=== PATIENT | female | born 1945 | race Two or more races ===

== ENCOUNTER 2020-04-18 06:06 | Inpatient (IN) ==
--- NOTE | 2020-04-01 21:05 | PAT Medication Instructions ---
Medication Instructions Date of Service April 01, 2020 Home Medications atorvastatin 20 mg PO QAM calcium carbonate-vitamin D3 [Caltrate 600 + D] 1 tab PO QAM alendronate 70 mg PO WK linagliptin [Tradjenta] 5 mg PO QAM metformin 1,000 mg PO BID polyethylene glycol 3350 17 g PO DAILY PRN psyllium husk [Daily Fiber] 0.52 g PO DAILY Continue as directed alendronate 70 mg PO WK DO NOT take the morning of surgery calcium carbonate-vitamin D3 [Caltrate 600 + D] 1 tab PO QAM linagliptin [Tradjenta] 5 mg PO QAM metformin 1,000 mg PO BID polyethylene glycol 3350 17 g PO DAILY PRN psyllium husk [Daily Fiber] 0.52 g PO DAILY Take morning of surgery With a small sip of water, OTHERWISE NOTHING TO EAT OR DRINK AFTER MIDNIGHT: atorvastatin 20 mg PO QAM Take evening before surgery metformin 1,000 mg PO BID polyethylene glycol 3350 17 g PO DAILY PRN (if needed) Other Notes If you have any questions please call us at [phone] or [phone] or [phone] or [phone]
--- NOTE | 2020-04-04 09:08 | Anesthesiology Consultation ---
Date of Service April 04, 2020 Assessment & Plan (1) Encounter for pre-operative examination: Per PAT assessment on 04/04: Travel screen negative. No known COVID-19 positive contacts. No current COVID-19 related symptoms. No hx of COVID-19 testing. - Assistant Associate Full Professor needed: primary language [facility]. Patient declined research associate policy at PAT visit/requested son aid in obtaining PMHX. OR made aware of need for research associate policy DOS. - Anemia: HGB 7.4% on preop labs 04/04/20. Most recent comparison labs from oncology 03/10/20 with hgb at 7.6. HGB stable in the 7 range. Also noted at visit, + thrombocytosis. Case reviewed by Dr. Mckenzie: Recommendation for stat CBC and 2U PRBC's for AM DOS. Order written. Blood bank/OR/surgeon's office made aware. OR ([facility]) made aware to have patient come in early DOS to have blood transfusion. - Check BSG AM DOS Chart Review Chart Review: Acceptable Risk for Surgery and Patient seen in Pre Admission Testing Teaching & Discussion Pre-Anesthesia Teaching/Discussion Notes: Instructed NPO after midnight before surgery,except medications with 15 cc of water. Medication instructions provided according to the PAT guidelines. History Surgery Operation Date: 04/18/20 07:30 Proposed Procedures p Right Hand Assisted Laparoscopic Nephrectomy - Mike Cross MD Height/Weight Height: 5 ft 1 in Weight: 48.4 kg Allergies Allergy/AdvReac Type Severity Reaction Status Date / Time No Known Allergies Allergy Unverified 03/28/20 12:10 Medications Home Medications Medication Instructions Recorded Confirmed Last Taken atorvastatin 20 mg PO QAM 04/10/19 03/28/20 04/10/19 09:00 calcium carbonate-vitamin D3 1 tab PO QAM 04/10/19 03/28/20 04/10/19 09:00 [Caltrate 600 + D] alendronate 70 mg PO WK 03/28/20 03/28/20 Unknown linagliptin [Tradjenta] 5 mg PO QAM 03/28/20 03/28/20 Unknown metformin 1,000 mg PO BID 03/28/20 03/28/20 Unknown polyethylene glycol 3350 17 g PO DAILY PRN 03/28/20 03/28/20 Unknown psyllium husk [Daily Fiber] 0.52 g PO DAILY 03/28/20 03/28/20 Unknown Past Medical History Medical History (Updated 04/04/20 @ 15:11 by Ashli Mckeon) Age related osteoporosis Anemia chronic, stable hgb in the 7's Constipation Diabetes (Chronic) NIDDM Emphysema lung mild emphysematous change on preop CXR Kidney mass Exercise / Class Metabolic Activity III < 4 Walking/Shop/Light housework Past Family History Family History Brother Diabetes Mother Diabetes Past Surgical History Surgical History History of left cataract surgery Past Anesthesia History No Hx of Anesthesia Complications and No Family Hx of Anesthesia Complications History of PONV No Hx of PONV Social History Smoking Status: Never smoker Do You Dip or Chew Tobacco: No Hx Alcohol Use: No Hx Substance Use: No substance use type: does not use Review of Systems Patient denies chest pain, shortness of breath, cough, wheezing, palpitations. Physical Exam Vital Signs VITALS BP 113/62 P 91 TEMP 98.1 SP02 97%RA RESP 16 PHYSICAL Full neck and c-spine range of motion. Full TMJ range of motion. TMD 3.5 finger breaths Mallampati Score 2 Dentition: edentulous, + dentures upper/lower Lungs: clear throughout to auscultation Cardiac: regular rate and rhythm, no murmurs noted Spine: normal Carotid arteries: negative bruit Extremities: no edema Testing Laboratory Results 04/04/20 09:31 04/04/20 09:31 Hemoglobin A1c 6.6 % (4.5-5.6) H 04/04/20 09:31 Urine Color Yellow 04/04/20 09:31 Urine Appearance Clear (Clear) 04/04/20 09:31 Urine pH 6.0 (4.5-7.5) 04/04/20 09:31 Ur Specific [place] 1.012 (1.000-1.030) 04/04/20 09:31 Urine Protein Negative (Negative) 04/04/20 09:31 Urine Glucose (UA) Negative (Negative) 04/04/20 09:31 Urine Ketones Negative (Negative) 04/04/20 09:31 Urine Nitrite Negative (Negative) 04/04/20 09:31 Ur Leukocyte Esterase Negative (Negative) 04/04/20 09:31 Blood Type AB Positive 04/04/20 09:31 Antibody Screen NEGATIVE 04/04/20 09:31 Electrocardiogram Date: 04/04/20 Findings: + NSR @ (95) Chest X-Ray Date: 04/04/20 Lungs are clear. There is a component of mild emphysematous change. No significant cardiac enlargement. Diaphragms are smooth. IMPRESSION: Chronic and mild emphysematous change. No acute process.
[2020-04-04 10:12] LABS: Appearance Urine Clear (Clear); Bilirubin Urine Negative (Negative); Blood Urine Negative (Negative); Color Urine Yellow; Glucose Urine UA Negative (Negative); Ketones Urine Negative (Negative); Leukocyte Esterase Urine Negative (Negative); Nitrite Urine Negative (Negative); Protein Urine Negative (Negative); Specific Gravity Urine 1.012 (1.000-1.030); Urobilinogen Urine Negative (Negative)
--- NOTE | 2020-04-04 10:12 | XRay Report ---
XR chest Pre-admission PA/Lat CLINICAL HISTORY: PAT preoperative evaluation COMPARISON STUDY: 04/10/2018 FINDINGS: Lungs are clear. There is a component of mild emphysematous change. No significant cardiac enlargement. Diaphragms are smooth. IMPRESSION: Chronic and mild emphysematous change. No acute process. ACT 112: Negative or not required by law. The above report was generated using voice recognition software. It may contain grammatical, syntax or spelling errors. Electronically signed by: Lex Moody M.D. 04/04/2020 10:11 AM
[2020-04-04 10:24] LABS: BUN Creatinine Ratio 27.8 (10-20); Calcium 9.9 mg/dl (8.5-10.1); Creatinine Clr Calc Pharmacy 85.9 ml/min; Est GFR (African American) 116.1; Est GFR (Non-African American) 100.1; Potassium 4.3 mmol/L (3.5-5.1)
[2020-04-04 10:35] LABS: Estimated Average Glucose 143 mg/dl; Hemoglobin A1C 6.6 % (4.5-5.6)
[2020-04-04 11:23] LABS: Basophils # (auto) 0.03 K/uL (0-0.2); Basophils % (auto) 0.3 %; Eosinophils # (auto) 0.08 K/uL (0-0.5); Eosinophils % (auto) 0.9 %; Hematocrit (blood only) 25.5 % (37-47); Hemoglobin 7.4 g/dL (12.0-16.0); Hypochromasia Present; Immature Granulocytes # (auto) 0.02 K/uL (0.00-0.02); Immature Granulocytes % (auto) 0.2 %; Lymphocytes # (auto) 1.31 K/uL (1.2-3.4); Mean Corpuscular Hemoglobin 20.8 pg (25-34); Mean Corpuscular Volume 71.8 fL (80-100); Microcytosis Present; Monocytes # (auto) 1.13 K/uL (0.11-0.59); Monocytes % (auto) 12.9 %; Neutrophils # (auto) 6.16 K/uL (1.4-6.5); Neutrophils % (auto) 70.7 %; Platelet Count 686 K/uL (130-400); Red Blood Count 3.55 M/uL (4.2-5.4); White Blood Count 8.73 K/uL (4.8-10.8)
--- NOTE | 2020-04-04 12:20 | Electrocardiogram Report ---
Test Reason : Blood Pressure : / mmHG Vent. Rate : 095 BPM Atrial Rate : 095 BPM P-R Int : 150 ms QRS Dur : 086 ms QT Int : 356 ms P-R-T Axes : 064 040 060 degrees QTc Int : 447 ms Normal sinus rhythm Normal ECG When compared with ECG of 10-APR-2019 14:39, No significant change was found Confirmed by Dillon Maharaj ([id number]) on 04/04/2020 12:20:07 PM Referred By: Mike Cross Confirmed By:Lester Maharaj
[~2020-04-18 06:06] MED LIST: CEFAZOLIN 2000MG 2,000 MG/15 ML SYR IV SCH; LACTATED RINGER'S 1,000 ML IV SCH; SODIUM CHLORIDE 0.9% 250 ML IV PRN
[2020-04-18] MEDS ORDERED: ATROPINE SULFATE 0.1 MG/ML 10ML SYR IV PRN (07:14)
[2020-04-18] MEDS ORDERED: ePHEDrine sulfate 50 MG/ML AMP IV PRN (07:14)
[2020-04-18] MEDS ORDERED: HYDROmorphone INJ 1 MG/ML SYRINGE IV PRN (07:14)
[2020-04-18] MEDS ORDERED: ONDANSETRON INJ 2 MG/ML 2 ML VIAL IV PRN ×2 (07:14→13:50)
[2020-04-18 07:26] LABS: Basophils # (auto) 0.04 K/uL (0-0.2); Basophils % (auto) 0.6 %; Eosinophils # (auto) 0.08 K/uL (0-0.5); Eosinophils % (auto) 1.1 %; Hematocrit (blood only) 26.2 % (37-47); Hemoglobin 7.6 g/dL (12.0-16.0); Immature Granulocytes # (auto) 0.03 K/uL (0.00-0.02); Immature Granulocytes % (auto) 0.4 %; Lymphocytes # (auto) 1.18 K/uL (1.2-3.4); Lymphocytes % (auto) 16.5 %; Mean Corpuscular Hemoglobin 20.9 pg (25-34); Mean Platelet Volume 8.2 fL (7.4-10.4); Monocytes # (auto) 1.02 K/uL (0.11-0.59); Monocytes % (auto) 14.2 %; Neutrophils # (auto) 4.81 K/uL (1.4-6.5); Neutrophils % (auto) 67.2 %; Platelet Count 678 K/uL (130-400); RDW Coefficient of Variation 18.3 % (11.5-14.5); RDW Standard Deviation 48.7 fL (36.4-46.3); Red Blood Count 3.64 M/uL (4.2-5.4); White Blood Count 7.16 K/uL (4.8-10.8)
[2020-04-18 07:49] LABS: Hypochromasia Present; Microcytosis Present
[2020-04-18] MEDS ORDERED: ALBUMIN HUMAN 5% 12.5 GM/250 ML VIAL IV ONE (07:50)
[2020-04-18] MEDS ORDERED: fentaNYL citrate 100 MCG/2 ML VIAL ONE ×2 (08:06→10:20)
[2020-04-18] MEDS ORDERED: LIDOCAINE HCL 2% 2 ML VIAL/AMP(20MG/ML) INFIL ONE (08:06)
[2020-04-18] MEDS ORDERED: MIDAZOLAM HCL 1 MG/ML 2ML VIAL ONE (08:06)
[2020-04-18] MEDS ORDERED: ROCURONIUM BROMIDE 10 MG/ML 5 ML VIAL IV ONE (08:06)
[2020-04-18] MEDS ORDERED: ONDANSETRON INJ 2 MG/ML 2 ML VIAL ONE (08:06)
[2020-04-18] MEDS ORDERED: PROPOFOL IV EMULSION 10 MG/ML 20 ML VIAL IV ONE (08:06)
--- NOTE | 2020-04-18 08:48 | History & Physical Bridge Note ---
Date of Service April 18, 2020 History & Physical Bridge Note I have examined the patient, reviewed the History & Physical and in the interval since the performance of the History & Physical I have noted the following changes of clinical significance: no changes noted
[2020-04-18] MEDS ORDERED: BUPIVACAINE 0.5 % 5 MG/1 ML MPF 30ML VIAL ONE (09:29)
[2020-04-18] MEDS ORDERED: FLOSEAL HEMOSTATIC MATRIX 10ML TOP ONE (11:15)
[2020-04-18] MEDS ORDERED: SURGICEL ABSORB HEMOSTAT 2IN X 14IN TOP ONE (11:42)
[2020-04-18] MEDS ORDERED: SUGAMMADEX SODIUM 200 MG/2 ML VIAL IV ONE (11:51)
--- NOTE | 2020-04-18 12:39 | Operative Report ---
PG Post Operative Report Pre & Post Diagnosis Operation Date: 04/18/20 08:50 Pre-Op Diagnosis: Renal Mass Post-Op Diagnosis: Renal Mass I identified the patient and participated in the time-out.: Yes Procedure Operation Date: 04/18/20 08:50 Actual Procedures p Right Hand Assisted Laparoscopic Nephrectomy(Right); retroperitoneal lymph node resection- Mike Cross MD Surgeon Dillon Cross MD Hosted Services Analyst Jhoana Patel; Krissy Turner Estimated Blood Loss 100 Findings Consistent with Post-Op Diagnosis Specimens 1. Kidney 2. Interaortocaval node Description of Procedure The patient was identified in the preoperative holding area, appropriate informed consents were reviewed and completed and the patient was transferred to the operative suite. Upon arrival, appropriate antibiotics and anesthesia were administered and the patient was placed in left side down right side up lateral decubitus position with the bed flexed. Of note, she received 2 units of blood prior to surgery per anesthesia recommendations. To begin the case I made a Horton style incision on the right lower quadrant beginning at the lateral border of the rectus muscle and angling towards the anterior superior iliac spine. I carried this dissection through the superficial tissues until I identified the external oblique fascia. This was incised sharply and opened longitudinally. I then carried this to the internal oblique and transversalis before piercing the peritoneum sharply and performing a finger sweep. This revealed no evidence of adhesions in the area. I expanded the peritoneal incision to match the external incision and inspected internally. Utilizing this incision I was able to start mobilizing the colon medially by incising the lateral white line of Toldt. This dissection was carried towards the kidney. I then placed a GelPort in the hand adapter. I insufflated the abdomen by placing a 12 mm port through the GelPort. I then passed a hand and placed to election assistant ports along with a lateral border of the rectus musclethe first was approximately 4 cm below the costal margin, the second was ap proximately 8 cm below thatboth were 12 mm ports. To begin the laparoscopic portion of the case I continued my mobilization of the colon medially. I then continued my peritoneal dissection from the superior medial pole of the kidney to the lateral corner of the diaphragm and liver. I did not incise laterally to the kidney initially. I then returned to the lower pole of the kidney and I began to dissect and identify the duodenum. I kocherized the duodenum and moved it off the medial aspect of the kidney and IVC. I was able to dissect this nearly across the midline in anticipation of a later dissection of an interaortocaval node. Identify the gonadal vein inferior to the kidney and traced it back to the IVC. I then follow the lateral border of the IVC until we encountered the lower aspect of the renal vein. There was a thin layer of fat still over the renal vein but I could easily palpate both the vein and artery. I passed a solitary staple load across the hilum and stapled this. There was excellent hemostasis. I fired an additional staple load between the adrenal gland and the superior pole of the kidney. I then turned my attention back to the lower pole of the kidney. Identified the ureter neck control the ureter and a portion of introitus fascia utilizing a staple load. I used harmonic scalpel to incise the lateral aspect of the peritoneum and dissect further around the lateral portion of the kidney. Ultimately there was still some adherent tissue in the superior aspect of the kidney and I fired an additional staple load in that area before completing the dissection with harmonic scalpel. Hemostasis was excellent in the renal fossa. Hilar structures were dry. The kidney was extracted and passed off the table. I then turned my attention to a suspected metastatic interaortocaval node. I was able to follow the IVC and palpated node in the interaortocaval space just inferior to the renal vessels. I dissected this circumferentially and resected the node. Of note, the node was relatively mobile and not adherent to either the IVC or aorta. There was a solitary vessel feeding the note from the inferior aspect which proved somewhat challenging to control. I placed a number of clips around other small vessels medial and lateral and ultimately was able to control the small vessel feeding the node with a clip from the inferior aspect. After confirming good hemostasis, I placed FloSeal against the hilar structures and under the lateral border of the adrenal gland. I also placed a small amount of FloSeal in the interaortocaval space where the noted been dissected. I draped the omentum back over the right hemiabdomen and guided the colon back into the right hemiabdomen as well. I close the 2 - 12 mm election assistant ports with a solitary 0 Vicryl through the fascia. The hand port was closed in 3 layers utilizing 0 Vicryl. Skin was closed with 4-0 Monocryl after being infiltrated with half percent Marcaine. Dermabond was placed over all the incisions. She was subsequently extubated and taken to the PACU in stable condition. There were no complications. Jhoana Turner assisted from incision to closure. I attest to the content of the Intraoperative Record and any orders documented therein. Any exceptions are noted below.
[2020-04-18] MEDS: fentaNYL citrate 100 MCG/2 ML VIAL IV PRN ×2 (12:43→13:15)
[2020-04-18 12:50] LABS: iSTAT Creatinine 0.3 mg/dl (0.6-1.3); iSTAT Hemoglobin 10.2 g/dl (12.0-16.0); iSTAT Ionized Calcium 1.25 mmol/l (1.12-1.32); iSTAT Potassium 3.8 mmol/L (3.3-5.0)
[2020-04-18 12:53] LABS: Hematocrit (blood only) 30.2 % (37-47); Hemoglobin 9.3 g/dL (12.0-16.0); Mean Corpuscular Hemoglobin 23.1 pg (25-34); Mean Corpuscular Volume 75.1 fL (80-100); Mean Platelet Volume 8.1 fL (7.4-10.4); Platelet Count 531 K/uL (130-400); RDW Coefficient of Variation 18.9 % (11.5-14.5); Red Blood Count 4.02 M/uL (4.2-5.4); White Blood Count 12.45 K/uL (4.8-10.8)
[2020-04-18 13:01] LABS: Mean Corpuscular Hgb Conc 30.8 g/dL (32-36)
[2020-04-18 13:09] LABS: BUN Creatinine Ratio 23.7 (10-20); Calcium 9.2 mg/dl (8.5-10.1); Creatinine Clr Calc Pharmacy 82.2 ml/min; Est GFR (African American) 114.4; Est GFR (Non-African American) 98.7; Potassium 3.9 mmol/L (3.5-5.1)
[2020-04-18 13:19] LABS: Basophils # (auto) 0.03 K/uL (0-0.2); Basophils % (auto) 0.2 %; Eosinophils # (auto) 0.02 K/uL (0-0.5); Eosinophils % (auto) 0.2 %; Immature Granulocytes # (auto) 0.03 K/uL (0.00-0.02); Immature Granulocytes % (auto) 0.2 %; Lymphocytes # (auto) 1.38 K/uL (1.2-3.4); Lymphocytes % (auto) 11.1 %; Monocytes # (auto) 1.26 K/uL (0.11-0.59); Monocytes % (auto) 10.1 %; Neutrophils # (auto) 9.73 K/uL (1.4-6.5); Neutrophils % (auto) 78.2 %
[2020-04-18] MEDS ORDERED: POLYETHYLENE (MIRALAX) 17 GM PACK PO PRN (13:50)
[2020-04-18] MEDS ORDERED: OXYCODONE HCL IR 5 MG TAB (IMMEDIATE RELEASE) PO PRN (13:50)
[2020-04-18] MEDS ORDERED: PHARMACY GLYCEMIC MGMT CONSULT PRN (13:56)
[2020-04-18] MEDS ORDERED: DEXTROSE 50% 50 ML SYRINGE IV PRN (14:30)
[2020-04-18] MEDS ORDERED: CARBOHYDRATES FOR HYPOGLYCEMIA PO PRN (14:30)
[2020-04-18] MEDS ORDERED: GLUCAGON FOR INJ 1 MG VIAL IM PRN (14:30)
[2020-04-18] MEDS ORDERED: GLUCOSE 40% GEL 15 GM TUBE PO PRN (14:30)
[2020-04-18] MEDS ORDERED: GLUCOSE 10 TABS/TUBE PO PRN (14:30)
--- NOTE | 2020-04-18 14:32 | Pharmacy Report ---
Glycemic Control Consultation - Date of Service April 18, 2020 - Scope Scope: Glycemic Pharmacist consulted for glycemic control and to write orders per [facility] inpatient glycemic control protocol. - Objective Weight: 48.4 kg Accuchecks BSG (last 24hrs): 04/18/20 04/18/20 04/18/20 06:26 10:48 12:33 Glucose POC Glucose 80 146 H POC Glucose (other) 123 H 04/18/20 12:45 Glucose 147 H POC Glucose POC Glucose (other) Laboratory Data (last 24hrs): 04/18/20 12:45 Potassium 3.9 Carbon Dioxide 21 Anion Gap 12.0 H Creatinine 0.46 L Est Cr Clr Drug Dosing 82.2 HbA1c: Hemoglobin A1c 6.6 % (4.5-5.6) H 04/04/20 09:31 - Recent Pertinent Medications Outpatient Anti-diabetic Regimen: * tradjenta, metformin * A1c = 6.6 % 04/04/20 Risk Factors for Insulin Resistance: * Recent Surgery: POD 0 * Diet: clears * - Assessment & Plan Assessment & Plan: ASSESSMENT: * Patient s/p nephrectomy. Type 2 diabetic managed on oral agents at home. Pharmacy consulted for glycemic management PLAN FOR INPATIENT GLYCEMIC CONTROL: * Basal insulin * hold / not indicated * Bolus insulin * NovoLog per scale ACHS or Q6hrs while NPO * Goal Range: Low 110 mg/dL - High 140 mg/dL * Correction Factor: 40 mg/dL/unit * Nutritional / Prandial insulin per carb ratio of 1 unit per 15 grams CHO consumed * Please note that the plan above was derived based on current level of insulin resistance and hospital stress. These recommendations are appropriate for inpatient admission only. Plan of care upon discharge will need to be reassessed to avoid potential outpatient hypo/hyperglycemia. Thank you.
[2020-04-18] MEDS ORDERED: MoRPHine SULFATE 2 MG/ML CARP IV PRN ×2 (15:15→15:16)
[2020-04-18] MEDS: ACETAMINOPHEN 325 MG TAB PO PRN (15:29)
[2020-04-18] MEDS: LACTATED RINGER'S 1,000 ML IV SCH ×2 (15:30→23:37)
--- NOTE | 2020-04-18 16:11 | Anesthesiology Progress Note ---
Date of Service April 18, 2020 Anesthesia Post Procedure Vital Signs Vital Signs: Temp Pulse Pulse Pulse Resp BP BP 04/18/20 15:38 36.5 C 68 16 167/75 H 04/18/20 13:45 36.6 C 64 11 L 144/71 H 04/18/20 13:30 62 18 130/65 04/18/20 13:20 62 17 138/66 04/18/20 13:10 64 18 141/73 H 04/18/20 13:00 62 17 140/66 04/18/20 12:50 62 11 L 127/64 04/18/20 12:40 64 17 128/64 04/18/20 12:30 65 21 124/64 04/18/20 12:24 36.1 C L 71 20 110/65 04/18/20 09:18 37.3 C 93 H 18 142/77 H 04/18/20 08:53 37.3 C 97 H 18 129/68 04/18/20 08:25 36.9 C 100 H 18 118/62 04/18/20 07:55 37.7 C H 95 H 18 123/65 04/18/20 07:35 37.1 C 100 H 18 128/68 04/18/20 07:23 36.6 C 99 H 18 153/81 H 04/18/20 06:44 36.6 C 99 H 18 155/81 H 04/18/20 06:30 36.6 C 99 H 18 153/81 H Pulse Ox 04/18/20 15:38 98 04/18/20 13:45 100 04/18/20 13:30 100 04/18/20 13:20 100 04/18/20 13:10 100 04/18/20 13:00 100 04/18/20 12:50 100 04/18/20 12:40 100 04/18/20 12:30 100 04/18/20 12:24 100 04/18/20 09:18 97 04/18/20 08:53 95 04/18/20 08:25 95 04/18/20 07:55 94 04/18/20 07:35 96 04/18/20 07:23 99 04/18/20 06:44 99 04/18/20 06:30 99 Transfer of Care Handoff Completed per policy Notes Mental Status: alert / awake / arousable and participated in evaluation Patient Amnestic to Procedure: Yes Nausea / Vomiting: adequately controlled Pain: adequately controlled Airway Patency, RR, SpO2: stable & adequate BP & HR: stable & adequate Hydration State: stable & adequate Anesthetic Complications: no major complications apparent and Pt Satisfied with anesthetic care
[2020-04-18] MEDS: INSULIN ASPART 100 UNITS/ML 3 ML PEN SC SCH ×2 (18:34→21:20)
[2020-04-18] MEDS: CEFAZOLIN 2000MG 2,000 MG/15 ML SYR IV SCH (18:41)
[2020-04-18] MEDS: OXYCODONE HCL IR 5 MG TAB (IMMEDIATE RELEASE) PO PRN (20:54)
[2020-04-19] MEDS: CEFAZOLIN 2000MG 2,000 MG/15 ML SYR IV SCH (00:50)
[2020-04-19 07:31] LABS: Basophils # (auto) 0.03 K/uL (0-0.2); Basophils % (auto) 0.4 %; Eosinophils # (auto) 0.11 K/uL (0-0.5); Eosinophils % (auto) 1.5 %; Hematocrit (blood only) 27.9 % (37-47); Hemoglobin 8.5 g/dL (12.0-16.0); Immature Granulocytes # (auto) 0.01 K/uL (0.00-0.02); Immature Granulocytes % (auto) 0.1 %; Lymphocytes # (auto) 1.39 K/uL (1.2-3.4); Lymphocytes % (auto) 18.5 %; Mean Corpuscular Hemoglobin 22.9 pg (25-34); Mean Corpuscular Hgb Conc 30.5 g/dL (32-36); Mean Corpuscular Volume 75.2 fL (80-100); Monocytes # (auto) 0.95 K/uL (0.11-0.59); Monocytes % (auto) 12.6 %; Neutrophils # (auto) 5.04 K/uL (1.4-6.5); Neutrophils % (auto) 66.9 %; Platelet Count 534 K/uL (130-400); RDW Coefficient of Variation 18.7 % (11.5-14.5); RDW Standard Deviation 51.9 fL (36.4-46.3); Red Blood Count 3.71 M/uL (4.2-5.4); White Blood Count 7.53 K/uL (4.8-10.8)
[2020-04-19 07:55] LABS: BUN Creatinine Ratio 16.3 (10-20); Calcium 8.7 mg/dl (8.5-10.1); Est GFR (African American) 104.8; Est GFR (Non-African American) 90.4; Potassium 4.1 mmol/L (3.5-5.1)
--- NOTE | 2020-04-19 08:09 | Urology Progress Note ---
Date of Service April 19, 2020 Assessment & Plan (1) Renal mass: Renal masspresumed renal cell carcinoma with suspected metastatic disease involving a retroperitoneal lymph node and possible spine locations Status post nephrectomy and metastatic ectomy of the retroperitoneal lymph node Progressing appropriately Continue ambulation Gooden out today Clear liquid diet Subjective Progressing appropriately overnight Still with significant pain, some gas pain Was out of bed briefly last night No nausea Pain has improved from yesterday until today Physical Exam Physical Exam: Incisions appropriate Abdomen soft Urine clear Results & Data Vital Signs (Past 12 Hours) Vital Signs Temp Pulse Resp BP BP Pulse Ox 04/19/20 07:58 36.6 C 62 18 164/72 H 95 04/19/20 04:00 37.1 C 62 18 132/72 95 04/18/20 23:35 36.4 C L 59 L 16 136/69 95 04/18/20 20:43 36.6 C 63 20 164/73 H 99 PG Care Time/CCT Total # of Minutes Spent Total Time Spent with Patient: Total time spent is greater than 50% in coordination of care (as documented) at patient's floor/unit and/or counseling patient: Coding Level of Care Code None Diagnoses Renal mass N28.89
--- NOTE | 2020-04-19 08:53 | Anesthesiology Progress Note ---
Date of Service April 19, 2020 Anesthesia Post Procedure Vital Signs Vital Signs: Temp Pulse Pulse Pulse Resp BP BP 04/19/20 07:58 36.6 C 62 18 04/19/20 04:00 37.1 C 62 18 132/72 04/18/20 23:35 36.4 C L 59 L 16 04/18/20 20:43 36.6 C 63 20 164/73 H 04/18/20 19:53 36.6 C 61 16 04/18/20 17:09 36.5 C 64 16 158/75 H 04/18/20 15:38 36.5 C 68 16 167/75 H 04/18/20 13:45 36.6 C 64 11 L 144/71 H 04/18/20 13:30 62 18 130/65 04/18/20 13:20 62 17 138/66 04/18/20 13:10 64 18 141/73 H 04/18/20 13:00 62 17 140/66 04/18/20 12:50 62 11 L 127/64 04/18/20 12:40 64 17 128/64 04/18/20 12:30 65 21 124/64 04/18/20 12:24 36.1 C L 71 20 110/65 04/18/20 09:18 37.3 C 93 H 18 142/77 H BP Pulse Ox 04/19/20 07:58 164/72 H 95 04/19/20 04:00 95 04/18/20 23:35 136/69 95 04/18/20 20:43 99 04/18/20 19:53 163/75 H 97 04/18/20 17:09 97 04/18/20 15:38 98 04/18/20 13:45 100 04/18/20 13:30 100 04/18/20 13:20 100 04/18/20 13:10 100 04/18/20 13:00 100 04/18/20 12:50 100 04/18/20 12:40 100 04/18/20 12:30 100 04/18/20 12:24 100 04/18/20 09:18 97 Pain Intensity Abdomen: Pain Intensity: 7 Notes Mental Status: alert / awake / arousable and participated in evaluation Patient Amnestic to Procedure: Yes Nausea / Vomiting: adequately controlled Pain: adequately controlled Airway Patency, RR, SpO2: stable & adequate BP & HR: stable & adequate Hydration State: stable & adequate Anesthetic Complications: no major complications apparent and Pt Satisfied with anesthetic care
[2020-04-19] MEDS: CALCIUM 600MG + VIT D 400 IU TAB PO SCH (09:10)
[2020-04-19] MEDS: ATORVASTATIN 20 MG TAB PO SCH (09:11)
[2020-04-19] MEDS: INSULIN ASPART 100 UNITS/ML 3 ML PEN SC SCH ×4 (09:11→21:15)
[2020-04-19] MEDS: LACTATED RINGER'S 1,000 ML IV SCH ×2 (09:16→18:21)
[2020-04-19] MEDS: ACETAMINOPHEN 325 MG TAB PO PRN ×2 (10:50→20:59)
[2020-04-20] MEDS: LACTATED RINGER'S 1,000 ML IV SCH (03:03)
[2020-04-20 06:49] LABS: Basophils # (auto) 0.02 K/uL (0-0.2); Basophils % (auto) 0.3 %; Eosinophils # (auto) 0.13 K/uL (0-0.5); Eosinophils % (auto) 1.8 %; Hematocrit (blood only) 29.9 % (37-47); Hemoglobin 9.1 g/dL (12.0-16.0); Immature Granulocytes # (auto) 0.01 K/uL (0.00-0.02); Immature Granulocytes % (auto) 0.1 %; Lymphocytes # (auto) 1.19 K/uL (1.2-3.4); Lymphocytes % (auto) 16.9 %; Mean Corpuscular Hemoglobin 23.2 pg (25-34); Mean Corpuscular Hgb Conc 30.4 g/dL (32-36); Mean Corpuscular Volume 76.1 fL (80-100); Monocytes # (auto) 0.78 K/uL (0.11-0.59); Neutrophils # (auto) 4.93 K/uL (1.4-6.5); Neutrophils % (auto) 69.9 %; Platelet Count 532 K/uL (130-400); Red Blood Count 3.93 M/uL (4.2-5.4); White Blood Count 7.06 K/uL (4.8-10.8)
[2020-04-20 07:30] LABS: Est GFR (African American) 108.5; Est GFR (Non-African American) 93.6; Potassium 3.8 mmol/L (3.5-5.1)
[2020-04-20] MEDS: ATORVASTATIN 20 MG TAB PO SCH (08:31)
[2020-04-20] MEDS: CALCIUM 600MG + VIT D 400 IU TAB PO SCH (08:31)
[2020-04-20] MEDS: INSULIN ASPART 100 UNITS/ML 3 ML PEN SC SCH ×4 (09:51→21:17)
--- NOTE | 2020-04-20 10:27 | Urology Progress Note ---
Date of Service April 20, 2020 Assessment & Plan (1) Renal mass: Postop day 2 status post right nephrectomy and retroperitoneal lymph node dissection Recovering appropriately Continue ambulation Gooden out yesterday Slow diet advance Likely discharge home tomorrow if she continues to progress Subjective Making progress Ambulatory throughout the day yesterday Still no flatus No nausea Tolerating clear liquids Pain is still present but tolerable Review of Systems Review of Systems: All systems reviewed & are unremarkable except as noted in HPI & below Physical Exam Physical Exam: Incisions healing nicely, minimal abdominal distention Abdomen is soft Results & Data Vital Signs (Past 12 Hours) Vital Signs Temp Pulse Resp BP BP Pulse Ox 04/20/20 07:15 36.6 C 76 16 157/76 H 93 04/19/20 23:38 36.6 C 71 18 143/71 H 95 PG Care Time/CCT Total # of Minutes Spent Total Time Spent with Patient: Total time spent is greater than 50% in coordination of care (as documented) at patient's floor/unit and/or counseling patient: Coding Level of Care Code None Diagnoses Renal mass N28.89
[2020-04-20] MEDS ORDERED: KETOROLAC TROMETHAMINE 15 MG/ML VIAL IV ONE (11:35)
--- NOTE | 2020-04-20 14:45 | Pharmacy Report ---
Pharmacy Glycemic Short Note 2 - Date of Service April 20, 2020 - Glycemic Short BSG Results (Last 24 hours): 04/19/20 04/19/20 04/20/20 17:19 20:54 06:12 Glucose 111 H POC Glucose 117 H 141 H 04/20/20 04/20/20 08:38 12:05 Glucose POC Glucose 121 H 125 H OUTPATIENT ANTIDIABETIC REGIMEN: * tradjenta, metformin * A1c = 6.6 % 04/04/20 ASSESSMENT: * Berna is POD #2 s/p nephrectomy * Excellent glycemic control with minimal insulin usage (6 units yesterday) * Will resume metformin per patient is tolerating an oral diet and CrCl appears to be stabled. Possible discharge tomorrow. * Remove Novolog carbohydrate coverage - continue with correction only PLAN FOR INPATIENT GLYCEMIC CONTROL: * Resume metformin 1000 mg PO BID * Bolus insulin * NovoLog per scale ACHS or Q6hrs while NPO * Goal Range: Low 110 mg/dL - High 140 mg/dL * Correction Factor: 40 mg/dL/unit thank you
[2020-04-20] MEDS: METFORMIN HCL 500 MG TAB PO SCH (18:20)
[2020-04-21] MEDS: OXYCODONE HCL IR 5 MG TAB (IMMEDIATE RELEASE) PO PRN (06:34)
[2020-04-21 07:59] LABS: Basophils # (auto) 0.03 K/uL (0-0.2); Basophils % (auto) 0.6 %; Eosinophils # (auto) 0.12 K/uL (0-0.5); Eosinophils % (auto) 2.5 %; Hematocrit (blood only) 32.7 % (37-47); Hemoglobin 9.5 g/dL (12.0-16.0); Lymphocytes # (auto) 1.46 K/uL (1.2-3.4); Lymphocytes % (auto) 30.4 %; Mean Corpuscular Hemoglobin 22.8 pg (25-34); Mean Corpuscular Hgb Conc 29.1 g/dL (32-36); Mean Corpuscular Volume 78.4 fL (80-100); Mean Platelet Volume 8.1 fL (7.4-10.4); Monocytes # (auto) 0.39 K/uL (0.11-0.59); Monocytes % (auto) 8.1 %; Neutrophils # (auto) 2.81 K/uL (1.4-6.5); Neutrophils % (auto) 58.4 %; Platelet Count 555 K/uL (130-400); RDW Coefficient of Variation 19.1 % (11.5-14.5); RDW Standard Deviation 55.2 fL (36.4-46.3); Red Blood Count 4.17 M/uL (4.2-5.4); White Blood Count 4.81 K/uL (4.8-10.8)
[2020-04-21] MEDS: METFORMIN HCL 500 MG TAB PO SCH ×2 (08:14→17:34)
[2020-04-21] MEDS: CALCIUM 600MG + VIT D 400 IU TAB PO SCH (08:14)
[2020-04-21] MEDS: ATORVASTATIN 20 MG TAB PO SCH (08:14)
[2020-04-21 08:27] LABS: BUN Creatinine Ratio 12.3 (10-20); Calcium 8.9 mg/dl (8.5-10.1); Creatinine Clr Calc Pharmacy 64.1 ml/min; Est GFR (African American) 105.4; Est GFR (Non-African American) 90.9; Potassium 3.8 mmol/L (3.5-5.1)
--- NOTE | 2020-04-21 09:23 | Urology Progress Note ---
Date of Service April 21, 2020 Assessment & Plan (1) Renal cell carcinoma: Continues to progress appropriately from her recent nephrectomy Likely discharge home tomorrow Awaiting final pathology Subjective Continues to progress after her recent right nephrectomy and retroperitoneal lymph node dissection Pain is decreased Ambulating more regularly and with less discomfort Tolerating a regular diet Passing flatus but no bowel movement yet Labs are stabilized/improved Review of Systems Review of Systems: All systems reviewed & are unremarkable except as noted in HPI & below Physical Exam Physical Exam: Incisions healing nicely Constitutional: well developed and well nourished Neck: neck nontender Respiratory: normal respiratory effort; no respiratory distress and does not use accessory muscles Cardiovascular: Rate/Rhythm: regular rate Vessels: radial pulses present Extremities: no edema Gastrointestinal (Abdomen): Inspection/Auscultation: abdomen normal to inspection Percussion/Palpation: abdomen soft; abdomen nontender and no guarding Musculoskeletal: Head/Neck/Chest: normocephalic and head atraumatic Extr emities: extremities normal to inspection Skin: no rashes and no lesions Trauma: no evidence of skin trauma Neurologic: awake; not obtunded Speech / Cognition: normal speech Motor/Sensory: no tremor Psychiatric: Orientation: alert and oriented x 3 Lymphatic: no lymphadenopathy Results & Data Vital Signs (Past 12 Hours) Vital Signs Temp Pulse Resp BP Pulse Ox 04/21/20 07:04 36.4 C L 68 16 158/80 H 96 04/21/20 00:07 36.5 C 66 16 135/73 94 PG Care Time/CCT Total # of Minutes Spent Total Time Spent with Patient: Total time spent is greater than 50% in coordination of care (as documented) at patient's floor/unit and/or counseling patient: Coding Level of Care Code 79682 Subseq Hosp Care Lvl 2 Diagnoses Renal cell carcinoma C64.9
[2020-04-21] MEDS: INSULIN ASPART 100 UNITS/ML 3 ML PEN SC SCH ×4 (09:37→21:01)
[2020-04-22 06:18] LABS: Basophils # (auto) 0.04 K/uL (0-0.2); Basophils % (auto) 0.7 %; Eosinophils # (auto) 0.17 K/uL (0-0.5); Eosinophils % (auto) 3.2 %; Hematocrit (blood only) 30.7 % (37-47); Immature Granulocytes # (auto) 0.02 K/uL (0.00-0.02); Immature Granulocytes % (auto) 0.4 %; Lymphocytes # (auto) 1.45 K/uL (1.2-3.4); Lymphocytes % (auto) 27.2 %; Mean Corpuscular Hemoglobin 22.7 pg (25-34); Mean Corpuscular Hgb Conc 29.3 g/dL (32-36); Mean Corpuscular Volume 77.5 fL (80-100); Monocytes # (auto) 0.43 K/uL (0.11-0.59); Monocytes % (auto) 8.1 %; Neutrophils # (auto) 3.23 K/uL (1.4-6.5); Neutrophils % (auto) 60.4 %; Platelet Count 493 K/uL (130-400); RDW Coefficient of Variation 18.9 % (11.5-14.5); RDW Standard Deviation 53.8 fL (36.4-46.3); Red Blood Count 3.96 M/uL (4.2-5.4); White Blood Count 5.34 K/uL (4.8-10.8)
[2020-04-22] MEDS ORDERED: ALENDRONATE SODIUM 70 MG TAB PO SCH (06:30)
[2020-04-22 06:47] LABS: BUN Creatinine Ratio 20.2 (10-20); Calcium 8.5 mg/dl (8.5-10.1); Est GFR (African American) 103.7; Est GFR (Non-African American) 89.5; Potassium 4.1 mmol/L (3.5-5.1)
--- NOTE | 2020-04-22 08:40 | Pharmacy Report ---
Pharmacy Glycemic Short Note 2 - Date of Service April 22, 2020 - Glycemic Short BSG Results (Last 24 hours): 04/21/20 04/21/20 04/21/20 12:05 17:09 20:41 Glucose POC Glucose 121 H 105 H 107 H 04/22/20 04/22/20 05:55 08:25 Glucose 105 H POC Glucose 107 H OUTPATIENT ANTIDIABETIC REGIMEN: * Tradjenta 5 mg PO daily * Metformin 1000 mg PO BIDM * A1c = 6.6 % 04/04/20 ASSESSMENT: * Elijahreinaldo is POD #4 s/p nephrectomy * Continues to have excellent glycemic control * Metformin initiated and carb coverage removed from Novolog * Patient required no insulin yesterday PLAN FOR INPATIENT GLYCEMIC CONTROL: * Resume metformin 1000 mg PO BID * Bolus insulin - continue * NovoLog per scale ACHS or Q6hrs while NPO * Goal Range: Low 110 mg/dL - High 140 mg/dL * Correction Factor: 40 mg/dL/unit thank you
[2020-04-22] MEDS: ATORVASTATIN 20 MG TAB PO SCH (09:08)
[2020-04-22] MEDS: CALCIUM 600MG + VIT D 400 IU TAB PO SCH (09:08)
[2020-04-22] MEDS: METFORMIN HCL 500 MG TAB PO SCH (09:09)
[2020-04-22] MEDS: INSULIN ASPART 100 UNITS/ML 3 ML PEN SC SCH ×2 (09:13→13:31)
--- NOTE | 2020-04-22 10:04 | Urology Progress Note ---
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 Discussed the pathology with the patient and her son She will certainly need oncology follow-up, particularly pay attention to her spine We will plan for outpatient follow-up to assess her recovery She is stable for discharge home Subjective Continuing to progress appropriately She has moved her bowels She is ambulatory Her pain is well controlled She is ready to go home Physical Exam Physical Exam: Incision healing nicely Results & Data Vital Signs (Past 12 Hours) Vital Signs Temp Pulse Pulse Resp BP Pulse Ox 04/22/20 07:17 36.3 C L 70 14 143/70 H 92 04/21/20 23:36 36.4 C L 70 16 111/67 93 PG Care Time/CCT Total # of Minutes Spent Total Time Spent with Patient: Total time spent is greater than 50% in coordination of care (as documented) at patient's floor/unit and/or counseling patient: Coding Level of Care Code None Diagnoses Renal cell carcinoma C64.9
--- NOTE | 2020-04-22 10:05 | Discharge Summary ---
Date of Service April 22, 2020 Admission HPI Per Admitting Provider 74-year-old female with right renal mass highly concerning for renal cell carcinoma with suspected metastatic disease She presents for nephrectomy Principal Diagnosis Renal cell carcinoma Discharge Data Allergies Allergy/AdvReac Type Severity Reaction Status Date / Time No Known Allergies Allergy Unverified 04/18/20 06:35 Procedures Performed Operation Date: 04/18/20 08:50 Actual Procedures p Right Hand Assisted Laparoscopic Nephrectomy(Right) - Mike Cross MD Hospital Course (1) Renal cell carcinoma: Patient admitted for a right radical nephrectomy with retroperitoneal lymph node excision Underwent the surgery with out event Recovered appropriately on the floor, Gooden catheter removed on postoperative day 1 Labs stabilized, vitals stable throughout Gradually began to resume all functions including ambulation, tolerated solid diet, pain was controlled Ultimately discharged on postoperative day 4 in stable condition Her pathology was returned prior to discharge from the hospital She has a high-grade renal cell carcinoma, however, 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 This is likely not directly related to the cancer but still warrants its own follow-up Total Time Total Time Spent Total Time Spent (In Minutes): 45 Total Time Includes: Examination of the Patient, Discharge Planning and Medication Reconciliation Discharge Plan Discharge Items Patient Disposition: Home - Self-Care Reason For Visit: Renal Mass Discharge Diagnosis: renal cell carcinoma; paraganglioma Activity: Per Instructions section Lifting: Gradually increase as tolerated and No more than 25 pounds Bathing: No limitations Exercise/Sports: Gradually increase as tolerated Driving/Machine Use: do not drive while on pain meds Non-emergency contact: Urologist Call non-emergency contact if: you have any medication questions, your pain is worsening, you have a fever and your temperature is above 101.5 Follow-up/Referrals: Jewell Myers MD [Primary Care Provider] - Diet: Regular Addtl Attending Provider Instructions: Please take all medications as prescribed and keep all follow-ups as scheduled. Please call our office at [phone] with any questions, concerns or need to reschedule appointments for any reason. We are happy to assist you. Recovering at home: We recommend having someone with you for the first few days after surgery to help care for you. It is okay to shower tomorrow. Please avoid swimming, bathing or using hot tub until incisions are well healed. Avoid driving until you are not requiring pain medication any further. Walk at least a few times a day. Increase your distance, as you feel able. Stairs in your home are okay. Please avoid strenuous or sexual activity until your follow-up. We recommend using stool softener (i.e. Colace) to prevent constipation and straining, especially the first two weeks post operatively. Call [facility] at [phone] if you experience: Chest pain or trouble breathing (call 131 or go to the hospital). Fever of 101F or higher Symptoms of infection at incision site, including redness or swelling, warmth, or bad-smelling drainage If you have catheter, and you notice: o Bloody urine or drainage that is dark red or has large clots (Please remember a small amount of blood is normal) o No drainage from the catheter for more than 6 hours o The catheter comes out of your bladder Pain that is not controlled with medicines Pending Studies at Discharge: No Stand-Alone Forms: [facility] [employer], Smoking Cessation Medications and DC Order Prescriptions: New oxycodone-acetaminophen 5-325 mg tablet 1 tab PO Q6H Qty: 30 RF: 0 Continued atorvastatin 20 mg Tablet 20 mg PO QAM RF: 0 Caltrate 600 plus D 600 mg (1,500 mg)-800 unit Tablet,Chewable 1 tab PO QAM RF: 0 metformin 500 mg tablet 1,000 mg PO BID RF: 0 alendronate 70 mg Tablet 70 mg PO WK RF: 0 Tradjenta 5 mg Tablet 5 mg PO QAM RF: 0 polyethylene glycol 3350 17 gram Powder In Packet 17 g PO DAILY PRN (Reason: Constipation) RF: 0 psyllium husk [Daily Fiber] 0.52 gram Capsule 0.52 g PO DAILY RF: 0 Discharge Orders: Discharge Order (Routine); Ordered 04/22/20 Ordered By: Mike Cross Admission Data Admit Date/Time: 04/18/20 12:34 Attending Provider: Mike Cross Admit Provider: Mike Cross Primary Care Provider: Jewell Myers Coding Level of Care Code D/C Day Management >30 mins Diagnoses Renal cell carcinoma C64.9
== END 2020-04-22 13:59 | disposition home or self-care (01) | DRG 658 ==
LOC: ASU 06:06 → 3W 12:34